=== PATIENT | male | born 1945 | race Caucasian/White ===

== ENCOUNTER 2020-02-25 10:56 | Emergency (ER) | payer MEDICARE, SELFPAY ==
--- NOTE | ~2020-02-25 | XR_ITS ---
EXAMINATION: XR knee LT 3V EXAM DATE: 02/25/2020 11:58 INDICATION: Initial encounter following injury, with pain of the left knee. TECHNIQUE: Three projections of the left knee. There is no prior study for comparison. FINDINGS: No evidence osteochondral defect or joint body in the left knee joint. Small to moderate right and also identified. There are no acute fractures identified. There is moderate primary osteoar thritis. IMPRESSION: 1. Small to moderate left knee joint effusion. 2. Moderate osteoarthritis. 3. No acute fracture line identified. Reviewed, dictated and finalized at location A.
[2020-02-25 11:27] VITALS: BP 122/72; PULSE 71; RESP 18; TEMP 36.9; O2SAT 99
--- NOTE | 2020-02-25 12:28 | ED.GENADULT ---
HPI - General Adult General Chief complaint: Fall Stated complaint: FALL/L KNEE STIFFNESS Time Seen by Provider: 02/25/20 10:58 Source: patient Mode of arrival: ambulatory Limitations: no limitations History of Present Illness HPI narrative: Patient is a 75-year-old male who presents with left knee injury after tripping and falling over his dog injuring the knee where he has bruising swelling and tenderness as well as an abrasion of the right elbow but states that the pain is minimal and discomfort patient on arrival to emergency department is in the room in no distress patient denies head injury syncope or other complaints Related Data Home Medications Medication Instructions Recorded Confirmed donepezil mg 02/25/20 escitalopram oxalate mg 02/25/20 lisinopril 02/25/20 Allergies Allergy/AdvReac Type Severity Reaction Status Date / Time No Known Allergies Allergy Verified 02/25/20 11:36 Review of Systems Review of Systems: All systems reviewed & are unremarkable except as noted in HPI and below PMFSH Past Medical History Medical History (Updated 02/28/20 @ 20:12 by William Urban PA-C) Hypertension Exam Narrative: Exam Narrative: GENERAL: Well-appearing, well-nourished, and in no acute distress. HEAD: Normocephalic, atraumatic. EYES: PERRLA and EOMI. ENT: Nares clear, no rhinorrhea or epistaxis. Mucous membranes moist. CHEST: Clear to auscultation. No respiratory distress. No wheezes rales or rhonchi HEART: Regular rate and rhythm. No murmur heard. Normal peripheral pulses. EXTREMITIES: Normal range of motion. No edema. Abrasion to the left knee with tenderness anteriorly. Tenderness and abrasion to the posterior right elbow SKIN: Warm, dry, no rash. NEURO: No focal deficits. Alert and oriented x3. Neurovascularly intact. Capillary refill less than 2 seconds PSYCH: Normal mood and affect. Course Course Emergency Course: Patient in the room in no distress aware of case findings treatment plan and diagnosis Vital Signs Vital signs: Vital Signs Temperature 98.5 F 02/25/20 11:27 Pulse Rate 71 02/25/20 11:27 Respiratory Rate 18 02/25/20 11:27 Blood Pressure 122/72 02/25/20 11:27 Pulse Oximetry 99 02/25/20 11:27 Temperature 98.5 F 02/25/20 11:27 Pulse Rate 71 02/25/20 11:27 Respiratory Rate 18 02/25/20 11:27 Blood Pressure 122/72 02/25/20 11:27 Pulse Oximetry 99 02/25/20 11:27 Medical Decision Making MDM Narrative Medical decision making narrative: Patients injury or pain is consistent with musculoskeletal etiology. No signs of neurological or vascular compromise on exam. Compartments and tisues are soft without signs of compartment syndrome. Pain is felt appropriate for further evaluation on an outpatient basis. Vital Signs Vital Signs: Vital Signs Temperature 98.5 F 02/25/20 11:27 Pulse Rate 71 02/25/20 11:27 Respiratory Rate 18 02/25/20 11:27 Blood Pressure 122/72 02/25/20 11:27 Pulse Oximetry 99 02/25/20 11:27 Temperature 98.5 F 02/25/20 11:27 Pulse Rate 71 02/25/20 11:27 Respiratory Rate 18 02/25/20 11:27 Blood Pressure 122/72 02/25/20 11:27 Pulse Oximetry 99 02/25/20 11:27 Discharge Plan Discharge Clinical Impression: Abrasion of elbow, right, Contusion of knee, left Patient Disposition: Elopement After Seen by Prov Prescriptions: No Action donepezil 10 mg tablet RF: 0 lisinopril 20 mg tablet RF: 0 escitalopram oxalate 10 mg tablet RF: 0 Interventions: Discharge Disposition Last Done: 02/25/20 12:44 IV Stop Time Documented Last Done: 02/25/20 13:00 Follow-up/Referrals: PHYSICIAN,PHOTOENGRAVING RETOUCHER [Primary Care Provider] - Discharge Date/Time: 02/25/20 12:44
--- NOTE | 2020-02-25 12:44 | PC.NURSE ---
Pt noted to be walking quickly by the desk, asking where the exit is. This RN asks patient if he's been discharged, or has papers. States no one has saw me at all, I'm tired of waiting . Continues ambulatory to exit.
== END 2020-02-25 12:44 | disposition left against medical advice (07) ==
PROVIDERS: Emergency Provider Emergency Medicine
DX: S80.02XA Contusion of left knee, initial encounter (principal); W01.0XXA Fall on same level from slipping, tripping and stumbling without subsequent striking against object, initial encounter; S50.311A Abrasion of right elbow, initial encounter; I10 Essential (primary) hypertension
CPT/HCPCS: 73562; 99283

== ENCOUNTER 2022-06-27 15:11 | Emergency (ER) | payer MEDICARE, MEDICAID, SELFPAY ==
[2022-06-27 15:13] VITALS: BP 162/85; PULSE 105; RESP 14; TEMP 36.7; O2SAT 96
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
--- NOTE | 2022-06-27 16:26 | PC.NURSE ---
Pt climbed out of bed to use toilet. Pt states I need to get out of here to get back to work . Pt remains cooperative.
[2022-06-27 16:36] LABS: Basophils Percent Auto 0.5 % (0.2-1.2); Eosinophils Absolute Auto 0.1 K/mm3 (0-0.3); Eosinophils Percent Auto 0.7 % (0-4.4); Hematocrit 38.2 % (42.0-52.0); Hemoglobin 12.5 g/dL (14.0-18.0); Immature Granulocyte Absolute 0.02 K/mm3 (0.00-0.031); Immature Granulocyte Percent A 0.2 % (0-0.5); Lymphocytes Absolute Auto 1.75 K/mm3 (0.9-3.2); Lymphocytes Percent Auto 19.7 % (18.3-44.2); Mean Corpuscular HGB Conc 32.7 g/dl (32-36); Mean Corpuscular Hemoglobin 26.9 pg (26-34); Mean Corpuscular Volume 82.3 fl (80-100); Mean Platelet Volume 9.6 fl (7.4-10.4); Monocytes Absolute Auto 0.6 K/mm3 (0.1-0.6); Neutrophils Absolute Auto 6.4 K/mm3 (1.3-6.7); Neutrophils Percent Auto 71.9 % (45.5-73.1); Platelet Count Result 254 k/mm3 (150-375); Red Blood Count 4.64 M/mm3 (4.6-6.20); Red Cell Distribution Width 13.5 % (11.5-14.5); White Blood Count 8.9 K/mm3 (4.5-10.0)
[2022-06-27 16:37] LABS: Appearance Urine Clear (Clear); Bilirubin Urine Negative (Negative); Blood Urine Negative (Negative); Color Urine Yellow (Yellow); Glucose Urine UA Negative (Negative); Ketones Urine Negative (Negative); Leukocyte Esterase Ur Negative LEU/UL (Negative); Nitrate Urine Negative (Negative); Protein Urine Negative (Negative); Specific Grav Ur 1.015 (1.001-1.035); Urobilinogen Urine 0.2 mg/dL (<2.0); pH Urine 5.5 (5.0-9.0)
[2022-06-27] MEDS: HALOPERIDOL LACTATE 5 MG/ML VIAL IM (16:40)
[2022-06-27 16:41] LABS: Add Urine Microscopic? NO
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
[2022-06-27 16:43] LABS: Alanine Aminotransferase 24 U/L (6-50); Albumin Level 4.7 g/dL (3.5-5.1); Alkaline Phosphatase 84 U/L (38-126); Anion Gap 8 mmol/L (8-16); Aspartate Amino Transferase 37 U/L (17-59); Bilirubin,Total 0.4 mg/dL (0.2-1.3); Blood Urea Nitrogen 11 mg/dL (9-20); Carbon Dioxide 24 mmol/L (22-30); Chloride 106 mmol/L (98-107); Estimated CRCL calculation 54 ml/min; Estimated Glomerular Filt Rate > 60; Glucose 119 mg/dL (65-110); Potassium 4.4 mmol/L (3.4-5.0); Sodium 138 mmol/L (137-145)
[2022-06-27 16:47] LABS: Acetaminophen < 10 ug/mL (10-30); Ethanol < 10 mg/dL (<10); Salicylate < 1.0 mg/dL (2-20)
[2022-06-27 17:02] LABS: Amphetamine Screen Urine Negative (Negative); Barbiturate Screen Urine Negative (Negative); Benzodiazepines Screen Urine Negative (Negative); Cannabinoid Screen Urine Negative (Negative); Cocaine Screen Urine Negative (Negative); Methadone Screen Urine Negative (Negative); Opiate Screen Urine Negative (Negative); Phencyclidine Screen Urine Negative (Negative)
[2022-06-27 17:20] VITALS: PULSE 83
--- NOTE | 2022-06-27 17:20 | PC.NURSE ---
Sitter at bedside.
[2022-06-27 18:04] VITALS: BP 129/60; PULSE 82; RESP 16; O2SAT 98
--- NOTE | 2022-06-27 19:30 | PC.NURSE ---
crisis called to evaluate patient. will respond within 2 hours
--- NOTE | 2022-06-27 23:00 | PC.NURSE ---
Callled and gave report to nurse at [facility], informing her that at the ER he received 1 dose Haldol and is resting comfortably, and that the provider also prescribed PRN medication for acute behavioral issues if they should arise before their administrative medical director is able to. The nurse thanks Satya for support.
[2022-06-27 23:30] VITALS: BP 121/75; PULSE 75; RESP 18; O2SAT 100
[2022-06-28 07:23] LABS: Influenza A QL RT-PCR Negative (Negative); Influenza B QL RT-PCR Negative (Negative); SARS-CoV-2 RNA PCR Negative
== END 2022-06-27 23:36 ==
PROVIDERS: Emergency Provider Emergency Medicine; PCP Family Medicine
DX: F03.911 Unspecified dementia, unspecified severity, with agitation (principal); I10 Essential (primary) hypertension; Z20.822 Contact with and (suspected) exposure to COVID-19
CPT/HCPCS: 36415; 80053; 80307; 81003; 85025; 87636; 96372; 99283; J1630

== ENCOUNTER 2022-06-27 23:42 | Emergency (ER) | payer MEDICARE, MEDICAID, SELFPAY ==
--- NOTE | ~2022-06-27 | CT_ITS ---
EXAMINATION: CT brain wo con DATE: 06/28/2022 15:14 INDICATION: Confusion TECHNIQUE: Computed tomography (CT) of the head was performed without intravenous contrast. Sagittal and coronal reconstructions were performed. The mA was adjusted according to patient size. Iterative reconstruction technique was employed. The dose-length product was 605.33 mGy-cm. COMPARISON: None FINDINGS: No acute intracranial hemorrhage, acute infarction or abnormal extra axial fluid collection. Well-def ined thin linear dystrophic versus atherosclerotic calcification in typical location of the right bas al ganglia. There is mild scattered white matter hypoattenuation consistent with chronic small vessel ischemic disease. Symmetric prominence of the sulci and ventricles consistent with mild moderate li noris age-related diffuse cerebral volume loss. No mass/mass effect. There are small right mastoid eff usion. The orbits, paranasal sinuses and left mastoid air cells are normal. IMPRESSION: 1. No acute intracranial process. 2. Age-related changes including mild to moderate diffuse on loss and mild scattered white matter hyp oattenuation consistent with chronic small vessel ischemic disease. Reviewed, dictated and finalized at location A. ORDERING CLINICIAN IMPRESSION: 1. No acute intracranial process. 2. Age-related changes including mild to moderate diffuse on loss and mild scat tered white matter hypoattenuation consistent with chronic small vessel ischemi c disease.
--- NOTE | 2022-06-27 23:47 | PC.NURSE ---
dr card spoke with skilled nursing DENIS about their refusal of this patient. DENIS stated that patient Had a bed at [facility] and just needed medical clearance. call placed to [facility] intake and was told that the skilled nursing never sent in the required paperwork for them to evaluate patient therefore patient did not have a bed. this rn sent requested information to [facility]
[2022-06-28] VITALS: BP 121/80; PULSE 68; RESP 16; TEMP 36.1; O2SAT 99
--- NOTE | 2022-06-28 | PC.NURSE ---
Patient was previously discharge and sent back to [facility] [place], [place] with a prn benzo prescription and a calm disposition vial BLS transport. long-term refuses to take their resident back into custody despite dose of haldon, being evaluated and clearand PRN Ativan medications. EMS brings pt back to ER.
--- NOTE | 2022-06-28 01:35 | PC.NURSE ---
calls placed to [facility], [facility], [facility], and [facility] for possible psych placement. All state they currently have no beds. requested paperwork faxed to [facility] for possible placement
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
[2022-06-28 04:26] VITALS: BP 128/74; PULSE 75; RESP 16; TEMP 36.1; O2SAT 95
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
[2022-06-28 04:40] VITALS: PULSE 68; RESP 20; TEMP 36.7; O2SAT 96
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
--- NOTE | 2022-06-28 06:15 | PC.NURSE ---
Lizet, daughter, contacted this am to discuss placement arrangements. Cell phone number to crisis contact center team lead, [place], given to daughter to call directly while crisis assessment takes place.
--- NOTE | 2022-06-28 07:30 | PC.NURSE ---
assumed care of pt. at this time. pt resting comfortably in stretcher with equal chest rise in fall in no acute distress. according to previous RN, crisis to come back out to revaluate pt once more awake.
[2022-06-28 08:11] VITALS: BP 149/88; PULSE 88; RESP 14; TEMP 36.8; O2SAT 96
--- NOTE | 2022-06-28 09:07 | PCCCNOTE ---
Phone call to Crisis spoke with intake, history provided, will need to confer with team about eval due to behaviors and crisis says that he was safety planned Notified that patient was evaluated by [place] around 0400 and was to sleepy to complete eval due to medication.
--- NOTE | 2022-06-28 10:54 | PC.NURSE ---
Zahraa with crisis at bedside speaking with pt.
--- NOTE | 2022-06-28 11:56 | PCCCNOTE ---
Addendum entered by Analia De La Torre RN 06/28/22 20:02: Correction patient's daughter's name is Lizet Massey Addendum entered by Analia De La Torre RN 06/28/22 13:36: Spoke with Spouse Chrissy and Lizet daughter and notified that [facility] does not have memory care but there is a [place] and [place] facility and they will be receiving calls. Fax'd referral to [facility] [phone], Cell phone for Analia law for facility is [phone]. Dennise from [facility] [place] [facility] [place] has contacted family also. Called to [facility] in [place], [facility], states that most likely can take him, [facility] states that she will need a couple hours but will call [facility] and then contact family, has been provided with spouse Chrissy's number. Original Note: Late entry: Phone call to Lizet Calero, patient's daughter at [phone] ex [phone], she states that she has not been involved in care until yesterday and her step mother Chrissy told [facility] she was a point of contact. There is no POA paperwork to designate her to make medical decisions, but she does provide a suggestion for memory care at [facility] in [place]. Called to patient's spouse Chrissy at [phone]. She was notified by [facility] that he can not go back. If memory care is recommended after crisis eval, she asks if [facility] could be called. She also gives permission for daughter Lizet to be involved in communication as she is a nurse. 1150 called to [facility] and [facility], they do not have memory care but they do have beds at [place] and [place] and will have their liason Dennise to call this care provider.
--- NOTE | 2022-06-28 14:59 | PC.NURSE ---
[facility] called and is requesting valproic acid levels and a head CT to be considered for placement.
[2022-06-28 15:23] VITALS: BP 144/81; PULSE 81; RESP 18; O2SAT 97
--- NOTE | 2022-06-28 16:15 | PCCCNOTE ---
Addendum entered by Analia De La Torre RN 06/28/22 16:58: Called to [facility], unable to accept if active behaviors. Phone call to Danny at [facility], left voice mail message, will send referral. Spoke with [facility], Bedside Jil provided update. Fax'd Head CT awaiting Valproic acid, called to lab, will be about an hour. Called to spouse Chrissy explained that he has been denied at [facility], most faciliites are private pay and she states that she can not do that must be Medicaid. Advised that [facility] cannot accept if active behaviors. Have left a message to [facility] and will fax information. Advised that still pursuing [facility] and [facility] is considering him but awaiting some additional lab work. Original Note: Late entry: Analia from [facility] called and notified that patient is declined. Called to [facility], they do not do Medicaid and can not private pay.
[2022-06-28] MEDS: HALOPERIDOL LACTATE 5 MG/ML VIAL IM (16:43)
[2022-06-28] MEDS: DIVALPROEX SODIUM SPRINKLE 125 MG CAP.DR PO (17:37)
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
--- NOTE | 2022-06-28 19:38 | PCCCNOTE ---
[facility] called to get update on pending valproic acid, still awaiting result. [facility] requests when available for ER to fax and call when faxing over. Bedside CLEVE Rizzo and interior specialist Jacob Update.
[2022-06-28 19:44] LABS: Valproic Acid < 10.0 ug/mL (50-120)
--- NOTE | 2022-06-28 20:13 | PC.NURSE ---
New labs faxed to [facility].
--- NOTE | 2022-06-28 20:23 | PC.NURSE ---
Called [facility] to verify they received depakote level. Staff states that they received fax but they are unable to accept pt d/t acuity and they have no more geriatric psych beds. parcel post officer notified.
--- NOTE | 2022-06-28 20:41 | PC.NURSE ---
called [facility] to see if they had beds. Spoke with Arlette and gave her report on pt. She is going to check if a bed is available and call back.
--- NOTE | 2022-06-28 21:24 | PC.NURSE ---
[facility] calls back to report that they do not have any [facility] beds at this time.
--- NOTE | 2022-06-28 21:52 | PC.NURSE ---
Called [facility] to check on bed status. [facility] the [facility].
[2022-06-29 03:19] VITALS: BP 157/82; PULSE 86; RESP 20; O2SAT 96
[2022-06-29] MEDS: DIVALPROEX SODIUM SPRINKLE 125 MG CAP.DR PO ×3 (03:19→23:11)
--- NOTE | 2022-06-29 04:55 | PC.NURSE ---
Called [facility] and [facility] equipment operator states psych intake has been paged to call back. [facility] does not take [facility]. [facility] states they cannot take pt d/t acuity. Attempted to call [facility] but there was no answer. Called [facility] and there are no [facility] beds and they do not wait list patients.
--- NOTE | 2022-06-29 05:02 | PC.NURSE ---
[facility] psych intake called back. No [facility] psych beds available.
--- NOTE | 2022-06-29 05:07 | PC.NURSE ---
Pt had episodes of restlessness between [id number] but was easily redirected back to his room. He has remained calm and slept much of this shift. He has cooperated with staff taking his vitals and giving his depakote.
--- NOTE | 2022-06-29 07:10 | PC.NURSE ---
Nurse report given to Brittany POON
[2022-06-29 07:41] VITALS: BP 139/89; PULSE 76; RESP 14; TEMP 36.6; O2SAT 94
[2022-06-29 15:01] VITALS: BP 150/89; PULSE 79; RESP 14; TEMP 36.6; O2SAT 96
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
[2022-06-29 19:36] VITALS: BP 170/84; PULSE 98; RESP 18; TEMP 37; O2SAT 95
--- NOTE | 2022-06-30 06:17 | PC.NURSE ---
assumed care of pt from . Pt pleasant and cooperative at this time
[2022-06-30] MEDS: DIVALPROEX SODIUM SPRINKLE 125 MG CAP.DR PO ×3 (06:45→22:20)
[2022-06-30 07:08] VITALS: BP 150/89; PULSE 101; RESP 18; O2SAT 95
--- NOTE | 2022-06-30 11:37 | PC.NURSE ---
Food tray ordered
[2022-06-30 11:42] VITALS: BP 153/89; PULSE 90; RESP 16; TEMP 36.8; O2SAT 93
--- NOTE | 2022-06-30 15:41 | PCCCNOTE ---
met with patient bedside, patient is alert and pleasantly confused today. Per RN and MD report patient is pleasant, cooperative, and easily redirected. [place] has officially denied. CC spoke with MD and patient is no longer meets involuntary Psychiatric criteria and is discharged from the ED. CC spoke with family, Chrissy and Lizet, whom at this time are refusing to pick patient up. CC called APS whom are not able to take the case at this time because refusal of accepting patient into home, not meeting neglect criteria. CC will continue to send referrals to facilities that accept [place] Medicaid and [place] medicaid, as patient can be transitioned to [place] medicaid once placed. CC faxed referral to [facility] in [facility] at [phone]. Olivia from facility [phone] will call if bed is available at that facility or [facility]. CC's glass cut off supervisor also called Axel at the wing in [facility] ([facility]) and they called back with NO bed availability and [facility] in [place] has a 50 bed facility but are at max capacity at this time. CC will continue to follow and send referrals for medicaid bed placement.
--- NOTE | 2022-06-30 16:20 | PCCCNOTE ---
CC called and spoke with Vivi [phone] at [facility], and faxed [phone] referral. She is calling her DON and will call back with determination fax referral [phone] to [facility] and spoke with Shashank [phone] and Momo [phone] with updates waiting for determination at this time. they would like to accept but it may not be until sunday. also called [facility] to give update of patient, waiting [employer] back to get fax number to fax referral. [facility] unable to accept.
[2022-06-30 19:07] VITALS: BP 161/87; PULSE 83; RESP 18; TEMP 36.6; O2SAT 94
[2022-06-30 23:03] VITALS: BP 135/88; PULSE 76; RESP 18; O2SAT 97
--- NOTE | 2022-07-01 00:03 | PC.NURSE ---
Pt awoke from sleeping and immediately got out of his recliner and started ambulating toward the door. Sitter in room was unable to persuade him to return to bed so this RN intervened to walk with patient for activity. Pt then began trying to enter another person's room and was not able to be redirected. Pt began getting verbally aggressive and attempting to shove this RN. Other staff around at this point to assist with getting patient into a wheelchair. Upon attempting to sit patient down he swung at staff. Pt assisted into wheelchair and brought back to room, in to assess. Meds ordered and will be administered and pt monitoring continued.
[2022-07-01] MEDS: LORazepam INJ (*CRX) 2 MG/ML VIAL IM (00:17)
[2022-07-01] MEDS: HALOPERIDOL LACTATE 5 MG/ML VIAL IM (00:17)
[2022-07-01 05:11] VITALS: PULSE 75; RESP 18; O2SAT 95
[2022-07-01] MEDS: DIVALPROEX SODIUM SPRINKLE 125 MG CAP.DR PO ×2 (06:07→14:30)
[2022-07-01 06:54] VITALS: BP 131/82; PULSE 72; RESP 18; O2SAT 95
--- NOTE | 2022-07-01 14:11 | PC.NURSE ---
lunch tray ordered for patient at 1413
--- NOTE | 2022-07-01 15:04 | PCCCNOTE ---
Call received from Giuliana social welfare administrator at [facility] ([phone]), stating she can accept pt but needs to verify Medicaid benefits prior to pt coming to the facility. She states this will be addressed promptly Sunday. Bert, ED manager primary care notified and he contacted the ED charge nurse with this updated information.
[2022-07-01 17:47] VITALS: BP 128/70; PULSE 78; RESP 18; TEMP 36.7; O2SAT 99
--- NOTE | 2022-07-01 19:43 | PC.NURSE ---
190 Assumed Pt care from Joby Graff, and Andre RN
[2022-07-02] MEDS: DIVALPROEX SODIUM SPRINKLE 125 MG CAP.DR PO ×2 (03:08→15:20)
--- NOTE | 2022-07-02 07:17 | PC.NURSE ---
Assumed care. Sleeping in recliner.
[2022-07-02 09:06] VITALS: BP 142/87; PULSE 78; RESP 20; TEMP 36.4; O2SAT 97
--- NOTE | 2022-07-02 15:24 | PC.NURSE ---
pt has been calm and compliant. mood is pleasant no needs at this time med compliant sitter with the pt
[2022-07-02 17:00] VITALS: BP 140/88; PULSE 86; RESP 16; O2SAT 97
--- NOTE | 2022-07-02 22:51 | PC.NURSE ---
Pt has had a good day, been compliant and cooperative pt did have one toileting accident, cleaned up with put issue. sitter at bedside
[2022-07-03] MEDS: DIVALPROEX SODIUM SPRINKLE 125 MG CAP.DR PO ×2 (00:01→07:00)
[2022-07-03 00:30] VITALS: RESP 18
[2022-07-03 04:44] VITALS: BP 144/101; PULSE 90; RESP 16; TEMP 36.9; O2SAT 100
[2022-07-03 06:45] VITALS: BP 144/81; PULSE 94; RESP 20; TEMP 36.2; O2SAT 97
--- NOTE | 2022-07-03 07:17 | PC.NURSE ---
Report given to CLEVE Kaur. at this time. Nutrition called at this time and breakfast special ordered at this time with DECAF black coffee.
[2022-07-03 07:41] VITALS: BP 137/79; PULSE 86; RESP 18; O2SAT 98
--- NOTE | 2022-07-03 08:51 | PCCCNOTE ---
spoke with [facility] this AM. Facility is still waiting for Medicaid benefit to be verified. Facility states they will call me back when approved. CC will continue to follow.
--- NOTE | 2022-07-03 10:25 | PCCCNOTE ---
Giuliana from [facility] called and they have accepted patient. Natasha, patients bedside nurse notified, she plans to call and notify her. Patient will DC from ED via ambulance. CC will continue to follow with any needs that may arise.
[2022-07-03 10:34] VITALS: BP 125/88; PULSE 85; RESP 18; O2SAT 96
--- NOTE | 2022-07-03 10:42 | PC.NURSE ---
Called the spouse Chrissy Newberry and made her aware that pt will be admitted at [facility], spouse happy with the placement.
== END 2022-07-03 11:21 ==
PROVIDERS: Family Medicine; Emergency Provider Emergency Medicine; PCP Family Medicine
DX: F03.911 Unspecified dementia, unspecified severity, with agitation (principal); I10 Essential (primary) hypertension
CPT/HCPCS: 36415; 70450; 80053; 80164; 80307; 81003; 85025; 87636; 96372; 99284; A9270; J1630; J2060